=== PATIENT | female | born 1995 | race Two or more races ===

== ENCOUNTER 2019-11-18 23:08 | Emergency (ER) | payer OTHER ==
[~2019-11-18] VITALS: Ht 160 cm; Wt 64.9 kg
[2019-11-18] MEDS ORDERED: FOLIC ACID0.8 M1 (23:24)
[2019-11-18] MEDS ORDERED: PRENA1 TRUE CO1 EACH (23:24)
[2019-11-19] MEDS ORDERED: MACROBID 100 M100 MG PO (03:48)
== END 2019-11-19 07:02 | disposition home or self-care (01) ==
LOC: ER 23:08
DX: O20.0 Threatened abortion (principal)

== ENCOUNTER → 2020-02-01 | Outpatient (CLI) | payer OTHER ==
[~2020-02-01] MED LIST: FOLIC ACID0.8 M1; MACROBID 100 M100 MG PO; PRENA1 TRUE CO1 EACH
== END | disposition home or self-care (01) ==
LOC: PRENATAL 08:02
PROVIDERS: ATTEND Obstetrics & Gynecology Maternal & Fetal Medicine
DX: O35.0XX1 Maternal care for (suspected) central nervous system malformation in fetus, fetus 1 (principal); O35.3XX1 Maternal care for (suspected) damage to fetus from viral disease in mother, fetus 1; O98.512 Other viral diseases complicating pregnancy, second trimester; Z36.89 Encounter for other specified antenatal screening; Z3A.20 20 weeks gestation of pregnancy

== ENCOUNTER → 2020-03-15 | Outpatient (CLI) | payer OTHER | END | disposition home or self-care (01) | LOC: PRENATAL 12:47 | PROVIDERS: ATTEND Obstetrics & Gynecology Maternal & Fetal Medicine | DX: O35.0XX1 Maternal care for (suspected) central nervous system malformation in fetus, fetus 1 (principal); O36.8310 Maternal care for abnormalities of the fetal heart rate or rhythm, first trimester, not applicable or unspecified; Z36.89 Encounter for other specified antenatal screening; Z3A.25 25 weeks gestation of pregnancy ==

== ENCOUNTER 2020-05-15 14:31 | Inpatient (IN) | payer OTHER ==
[~2020-05-15] VITALS: Ht 160 cm; Wt 73.5 kg
== END 2020-05-24 11:41 | disposition home or self-care (01) | DRG 832 ==
LOC: OB/GYN 14:31 → LDR 14:31 → OB/GYN 05-16 11:11
PROVIDERS: ADMIT Obstetrics & Gynecology; ATTEND Obstetrics & Gynecology
PROC: 4A1HXFZ Monitoring of Products of Conception, Cardiac Rhythm, External Approach (ICD-10-PCS; principal; 2020-05-15)
PROC: BW40ZZZ Ultrasonography of Abdomen (ICD-10-PCS; 2020-05-21)
DX: O47.03 False labor before 37 completed weeks of gestation, third trimester (principal); O99.113 Other diseases of the blood and blood-forming organs and certain disorders involving the immune mechanism complicating pregnancy, third trimester; D72.829 Elevated white blood cell count, unspecified; Z3A.34 34 weeks gestation of pregnancy

== ENCOUNTER 2020-06-06 02:00 | Outpatient (CLI) | payer OTHER | END 2020-06-06 09:57 | disposition home or self-care (01) | LOC: OBS/DEL 02:00 | PROVIDERS: ATTEND Obstetrics & Gynecology | DX: O47.1 False labor at or after 37 completed weeks of gestation (principal); O26.893 Other specified pregnancy related conditions, third trimester; D72.828 Other elevated white blood cell count; Z3A.37 37 weeks gestation of pregnancy ==

== ENCOUNTER 2020-06-06 20:49 | Inpatient (IN) | payer OTHER ==
[~2020-06-06] VITALS: Ht 160 cm; Wt 74.4 kg
[2020-06-08] MEDS ORDERED: DERMOPLAST PAIN78 GM TOP (08:19)
[2020-06-08] MEDS ORDERED: DOCUSATE SODIU100 MG PO (08:19)
[2020-06-08] MEDS ORDERED: PREPLUS CA-FE1 EACH PO (08:19)
[2020-06-08] MEDS ORDERED: IBUPROFEN400 MG PO (08:19)
[2020-06-08] MEDS ORDERED: AMOX1TAB5 PO (08:19)
== END 2020-06-08 16:07 | disposition home or self-care (01) | DRG 768 ==
LOC: LDR 20:49 → OB/GYN 20:49
PROVIDERS: ADMIT Obstetrics & Gynecology; ATTEND Obstetrics & Gynecology
PROC: 10E0XZZ Delivery of Products of Conception, External Approach (ICD-10-PCS; principal; 2020-06-06)
PROC: 0DQR0ZZ Repair Anal Sphincter, Open Approach (ICD-10-PCS; 2020-06-06)
PROC: 0W8NXZZ Division of Female Perineum, External Approach (ICD-10-PCS; 2020-06-06)
PROC: 10907ZC Drainage of Amniotic Fluid, Therapeutic from Products of Conception, Via Natural or Artificial Opening (ICD-10-PCS; 2020-06-06)
PROC: 4A1HXFZ Monitoring of Products of Conception, Cardiac Rhythm, External Approach (ICD-10-PCS; 2020-06-06)
DX: O70.20 Third degree perineal laceration during delivery, unspecified (principal); Z37.0 Single live birth; Z3A.37 37 weeks gestation of pregnancy; Z20.822 Contact with and (suspected) exposure to COVID-19

== ENCOUNTER 2022-10-10 10:56 | Emergency (ER) | payer OTHER ==
[~2022-10-10] VITALS: Ht 160 cm; Wt 65.3 kg
[~2022-10-10 10:56] MED LIST changes: +AMOX1TAB5 PO; +DERMOPLAST PAIN78 GM TOP; +DOCUSATE SODIU100 MG PO; +IBUPROFEN400 MG PO; +PREPLUS CA-FE1 EACH PO
[2022-10-11] MEDS ORDERED: PEPCID AC20 MG PO (06:06)
[2022-10-11] MEDS ORDERED: ONDANSETRON ODT4 MG PO (06:06)
[2022-10-11] MEDS ORDERED: INTESTINEX680 M1 PO (06:06)
[2022-10-11] MEDS ORDERED: DUI500 PO (06:07)
== END 2022-10-10 17:27 | disposition home or self-care (01) ==
LOC: ER 10:56
DX: N39.0 Urinary tract infection, site not specified (principal); R19.7 Diarrhea, unspecified

== ENCOUNTER 2022-10-10 21:47 | Emergency (ER) | payer OTHER ==
[~2022-10-10] VITALS: Ht 160 cm; Wt 65.8 kg
[2022-10-11] MEDS ORDERED: INTESTINEX680 M1 PO (06:06)
[2022-10-11] MEDS ORDERED: ONDANSETRON ODT4 MG PO (06:06)
[2022-10-11] MEDS ORDERED: PEPCID AC20 MG PO (06:06)
[2022-10-11] MEDS ORDERED: DUI500 PO (06:07)
== END 2022-10-11 06:17 | disposition home or self-care (01) ==
LOC: ER 21:47
DX: O23.32 Infections of other parts of urinary tract in pregnancy, second trimester (principal); N39.0 Urinary tract infection, site not specified; Z3A.16 16 weeks gestation of pregnancy; Z91.013 Allergy to seafood

== ENCOUNTER 2022-12-23 14:58 | Outpatient (CLI) | payer OTHER ==
[~2022-12-23 14:58] MED LIST changes: +DUI500 PO; +INTESTINEX680 M1 PO; +ONDANSETRON ODT4 MG PO; +PEPCID AC20 MG PO
== END 2022-12-23 15:35 | disposition home or self-care (01) ==
LOC: NST 14:58
PROVIDERS: ATTEND Obstetrics & Gynecology
DX: Z34.82 Encounter for supervision of other normal pregnancy, second trimester (principal)

== ENCOUNTER 2023-03-13 13:51 | Inpatient (IN) | payer OTHER ==
[~2023-03-13] VITALS: Ht 160 cm; Wt 82.6 kg
[2023-03-19 19:05] LABS: HEMATOCRIT 39.3 % (36.0-45.00); HEMOGLOBIN 13.1 g/dL (12.0-15.00); MEAN CELL VOLUME 87.9 fL (80.00-100.00); MEAN CORPUSCULAR HEMOGLOBIN 29.4 pg (27.00-32.0); MEAN CORPUSCULAR HGB CONC 33.4 g/dl (32.0-36.0); PLATELET COUNT 171 K/uL (150-450); RED BLOOD COUNT 4.47 M/uL (4.00-6.00); RED CELL DISTRIBUTION WIDTH 14.9 % (11.5-14.5)
[2023-03-19 19:22] LABS: INR < 0.93; PARTIAL THROMBOPLASTIN TIME 28.3 SECONDS (22.0-34.0); PROTHROMBIN TIME 9.8 SECONDS (9.0-11.5)
[2023-03-19 19:29] LABS: ALBUMIN 2.7 gm/dL (3.4-5.0); BILIRUBIN TOTAL 0.34 mg/dL (0.3-1.2); CALCIUM 9.9 mg/dL (8.5-10.1); CREATININE SERUM 0.53 mg/dL (0.55-1.02); GFR 136.38; GLOBULINA 3.6 G/DL (2.4-3.5); POTASSIUM 4.26 mEq/L (3.5-5.1); TOTAL PROTEIN 6.3 gm/dL (6.4-8.2)
[2023-03-20 16:40] LABS: HEMATOCRIT 41.7 % (36.0-45.00); HEMOGLOBIN 13.9 g/dL (12.0-15.00); MEAN CELL VOLUME 89.7 fL (80.00-100.00); MEAN CORPUSCULAR HEMOGLOBIN 29.9 pg (27.00-32.0); MEAN CORPUSCULAR HGB CONC 33.4 g/dl (32.0-36.0); PLATELET COUNT 170 K/uL (150-450); RED BLOOD COUNT 4.66 M/uL (4.00-6.00); RED CELL DISTRIBUTION WIDTH 14.7 % (11.5-14.5)
[2023-03-20 16:57] LABS: ALBUMIN 2.6 gm/dL (3.4-5.0); BILIRUBIN TOTAL 0.47 mg/dL (0.3-1.2); CALCIUM 9.7 mg/dL (8.5-10.1); CREATININE SERUM 0.5 mg/dL (0.55-1.02); GFR 145.87; GLOBULINA 3.5 G/DL (2.4-3.5); POTASSIUM 4.35 mEq/L (3.5-5.1); TOTAL PROTEIN 6.1 gm/dL (6.4-8.2)
[2023-03-20 22:26] LABS: URINE APPEARANCE Clear; URINE BILIRRUBIN Negative (NEGATIVE); URINE BLOOD Large; URINE COLOR Orange; URINE GLUCOSE Negative (NEGATIVE); URINE LEUKOCYTE Small; URINE NITRATE Negative; URINE PROTEIN Trace (NEGATIVE)
[2023-03-20 22:29] LABS: URINE BACTERIA 100.7 uL (0.0-1933); URINE EPITHELIAL CELLS 5.4 uL (0.0-38.8); URINE RBC 2742.6 uL (0.0-20.8); URINE WBC 64.3 uL (0.0-23.2)
[2023-03-21 07:20] LABS: HEMATOCRIT 33.2 % (36.0-45.00); HEMOGLOBIN 11.1 g/dL (12.0-15.00); MEAN CELL VOLUME 89.7 fL (80.00-100.00); MEAN CORPUSCULAR HEMOGLOBIN 30.1 pg (27.00-32.0); MEAN CORPUSCULAR HGB CONC 33.6 g/dl (32.0-36.0); PLATELET COUNT 150 K/uL (150-450); RED CELL DISTRIBUTION WIDTH 14.9 % (11.5-14.5)
== END 2023-03-22 11:12 | disposition home or self-care (01) | DRG 807 ==
LOC: LDR 03-19 18:21 → OB/GYN 03-20 15:50
PROVIDERS: Obstetrics & Gynecology Gynecology; ADMIT Obstetrics & Gynecology; ATTEND Obstetrics & Gynecology
PROC: 4A1HXCZ Monitoring of Products of Conception, Cardiac Rate, External Approach (ICD-10-PCS; 2023-03-19)
PROC: BY4FZZZ Ultrasonography of Third Trimester, Single Fetus (ICD-10-PCS; 2023-03-19)
PROC: 10E0XZZ Delivery of Products of Conception, External Approach (ICD-10-PCS; principal; 2023-03-20)
PROC: 0KQM0ZZ Repair Perineum Muscle, Open Approach (ICD-10-PCS; 2023-03-20)
DX: O70.1 Second degree perineal laceration during delivery (principal); Z37.0 Single live birth; Z3A.38 38 weeks gestation of pregnancy; Z20.822 Contact with and (suspected) exposure to COVID-19

== ENCOUNTER 2023-03-16 16:22 | Outpatient (CLI) | payer OTHER | END 2023-03-16 18:23 | disposition home or self-care (01) | LOC: NST 16:22 | PROVIDERS: ATTEND Obstetrics & Gynecology | DX: Z34.83 Encounter for supervision of other normal pregnancy, third trimester (principal) ==